=== PATIENT | male | born 2000 | race Caucasian/White ===

== ENCOUNTER 2021-10-31 11:53 | Emergency (ER) | payer OTHER ==
[2021-10-31] MEDS ORDERED: diphenhydrAMINE 25 MG CAP ONE (14:08)
[2021-10-31] MEDS ORDERED: cefTRIAXone\\ROCEPHIN 1 GM VIAL ONE (14:39)
[2021-10-31] MEDS ORDERED: Sulfameth/Trimethoprim DS 800-160mg TAB ONE (14:39)
[2021-10-31] MEDS ORDERED: Sterile Water 10 ML ONE (14:39)
== END 2021-10-31 15:13 | disposition home or self-care (01) ==
LOC: CSHERS 11:53
DX: L03.213 Periorbital cellulitis (principal)
CPT/HCPCS: 96374; J0696